=== PATIENT | male | born 1950 | race Caucasian/White ===

== ENCOUNTER 2017-07-28 14:22 | Outpatient (CLI) | payer MEDICARE ==
[~2017-07-28 14:22] MED LIST: Gadobenate Dimeglumine 529 MG/1 ML (20ML VIAL) ONE
== END 2017-07-28 14:23 | disposition home or self-care (01) ==
LOC: BICMRI 14:22
PROVIDERS: ATTEND Psychiatry & Neurology Neurology
DX: R41.89 Other symptoms and signs involving cognitive functions and awareness (principal); Z85.841 Personal history of malignant neoplasm of brain
CPT/HCPCS: 70553; A9579

== ENCOUNTER 2018-07-20 07:57 | Outpatient (CLI) | payer MEDICARE ==
[2018-07-20] MEDS ORDERED: ISOVUE-370 76%-LOCM 1 ML ONE (09:36)
--- NOTE | 2018-07-20 10:00 | CT ---
CT ABDOMEN AND PELVIS WITH IV CONTRAST: DATE: 07/20/2018. HISTORY: Epigastric pain and weight loss. Early satiety. History of brain cancer 19 years ago post chemother apy and radiation. Post EGD 2 days ago with reported diagnosis of esophageal cancer. COMPARISON: Non available. FINDINGS: There is minimal dependent atelectasis at the right lung base. Lung bases are otherwise clear. No p ulmonary nodule, mass, or pleural effusion is seen at either lung base. There are subcentimeter too small to characterize hypodense lesions seen within the liver. There is an exophytic 2.4 cm fluid attenuation density at the superior pole right kidney compatible w ith a cyst. There is a question of prominence of each renal collecting system, but this may be relat ed to parapelvic renal cyst. This cannot be further evaluated without delayed images post IV contras t. A subcentimeter too small to characterize hypodense lesion is seen at the inferior pole right kid blas. No enhancing renal mass is seen and no renal or ureteral calculi are appreciated. The spleen, pancreas, bilateral adrenal glands, and urinary bladder demonstrate a normal CT appearanc e. There is suggested thickening in the region of the GE junction with soft tissue prominence in this re gion. This could potentially be related to patient's reported history of esophageal cancer. It is d ifficult to further evaluate on this exam. Loops of small bowel are normal in caliber. A few colonic diverticula are seen. Vascular calcifications and mildly irregular atherosclerotic plaque is seen in the abdominal aorta an d to a lesser extent involving the iliac arteries. Surgical clips are seen in the scrotum bilaterally. No free fluid, fluid collection, or lymphadenopathy is seen in the abdomen or pelvis. Mild degenerative changes are seen in the spine. No lytic or sclerotic osseous lesions are identifie d. IMPRESSION: 1. Suggested soft tissue thickening in the region of the gastroesophageal junction. The patient has a reported history of esophageal cancer noted on recent esophagogastroduodenoscopy which may potenti ally account for this finding. 2. Subcentimeter too small to characterize hypodense lesions scattered in each lobe of the liver whi ch may represent tiny cysts. However, given multiplicity, tiny metastatic lesions could not be entir berta excluded. 3. No evidence of lymphadenopathy. 4. Right renal cysts with low-density areas in the region of the renal collecting systems bilaterall y probably related to parapelvic renal cysts as opposed to dilatation of the calyces. 5. No evidence of lymphadenopathy. 6. Mild colonic diverticulosis. POS: [facility]
== END 2018-07-20 07:58 | disposition home or self-care (01) ==
LOC: BICCT 07:57
PROVIDERS: ATTEND Internal Medicine Gastroenterology
DX: Z12.11 Encounter for screening for malignant neoplasm of colon (principal); R63.4 Abnormal weight loss; G93.9 Disorder of brain, unspecified; R10.13 Epigastric pain; K57.30 Diverticulosis of large intestine without perforation or abscess without bleeding; N28.1 Cyst of kidney, acquired; Z85.841 Personal history of malignant neoplasm of brain; Z85.01 Personal history of malignant neoplasm of esophagus
CPT/HCPCS: 36415; 74177; 80053; 82378; 82607; 82728; 84443; Q9966

== ENCOUNTER 2018-07-25 12:58 | Outpatient (CLI) | payer MEDICARE ==
--- NOTE | 2018-07-25 15:14 | PET ---
PET SCAN: HISTORY: Adenocarcinoma of the gastroesophageal junction. COMPARISON: CT abdomen/pelvis 07/20/2018. TECHNIQUE: A PET CT Was performed from the skull base through the mid thigh after administration of 10.5 mCi of F18-FDG. FINDINGS: There is thickening of the wall of the distal esophagus at the gastroesophageal junction. This demon strates hypermetabolic activity with a max SUV value of 13.6. No adjacent large or hypermetabolic ly mph nodes are seen in the lower mediastinum or adjacent to the stomach. No suspicious or hypermetabolic pulmonary nodules are identified. No suspicious hypermetabolic activ ity is seen in the neck or chest. No other suspicious areas of hypermetabolic activity are seen in t he abdomen or pelvis. CT images used for attenuation correction show stable small liver lesions which are too small to defi nitely characterize. Suspected metabolic activity is seen within the liver without obvious increased hypermetabolic activity in the lesion where the small subcentimeter lesions are present. There is a lso a cyst in the right kidney which does not demonstrate hypermetabolic activity. Scattered diverti cula are seen in the colon. No suspicious areas of hypermetabolic activity are seen within the skeleton. IMPRESSION: Hypermetabolic activity at the gastroesophageal junction is consistent with the patient's diagnosis o f adenocarcinoma at the gastroesophageal junction. POS: [facility]
== END 2018-07-25 12:59 | disposition home or self-care (01) ==
LOC: PET 12:58
PROVIDERS: ATTEND Internal Medicine Hematology & Oncology
DX: C16.0 Malignant neoplasm of cardia (principal)
CPT/HCPCS: 78815; A9552

== ENCOUNTER 2018-08-18 11:02 | Day surgery (SDC) | payer MEDICARE ==
[2018-08-17 17:15] VITALS: BMI 28.8
[2018-08-18 11:52] LABS: #Eosinphils 0.1 thou/uL (0.0-0.7); #Lymphocytes 0.8 thou/uL (1.20-3.40); #Monocytes 0.4 thou/uL (0.11-0.59); #Neutrophils 6.5 thou/uL (1.40-6.50); %Basophils 0.3 % (0.0-1.0); %Eosinophils 1.4 % (0.0-10.0); %Lymphocytes 10.6 % (21.0-51.0); %Monocytes 5.3 % (0.0-10.0); %Neutrophils 82.5 % (42.0-75.0); Hemoglobin 13.6 g/dL (14.0-18.0); Mean Corpuscular HGB CONC 33.1 g/dL (32.0-36.0); Mean Corpuscular Hemoglobin 32.5 pg (27.0-31.0); Mean Platelet Volume 7.7 fL (7.4-10.4); Platelet Count 239 thou/uL (130-400); RBC Distribution Width 12.6 % (11.5-14.5); White Blood Cell (WBC) Count 7.8 thou/uL (4.8-10.8)
[2018-08-18] MEDS ORDERED: Ketorolac Tromethamine 30 MG/ML VIAL ONE (11:52)
[2018-08-18 12:16] LABS: Anion Gap 11 mmol/L (10-20); BUN (Urea Nitrogen) 18 mg/dL (8.4-25.7); Calc. Creatinine Clearance 107 mL/min (70-130); Calcium 9.2 mg/dL (7.8-10.44); Carbon Dioxide 28 mmol/L (23-31); Chloride 104 mmol/L (98-107); Estimated GFR-MDRD Greater than 90; Glucose 111 mg/dL (80-115); Potassium 4.8 mmol/L (3.5-5.1); Sodium 138 mmol/L (136-145)
[2018-08-18] MEDS ORDERED: Lidocaine 1% (PF) 30 ML VIAL ONE (12:58)
[2018-08-18] MEDS ORDERED: Bupivacaine/Epinephrine 0.25% 30 ML VIAL ONE (12:58)
[2018-08-18] MEDS ORDERED: Fentanyl 100 MCG/2 ML VIAL ONE (13:13)
[2018-08-18] MEDS ORDERED: PROPOFOL 40 ML ONE (13:13)
--- NOTE | 2018-08-18 13:32 | RAD ---
PA AND LATERAL CHEST: HISTORY: Preop. FINDINGS: Heart size and mediastinum are within normal limits. There are some atherosclerotic changes of the a jeanette. The lungs are clear of any infiltrates. Some loss of vertebral body height of some of the mid thoracic vertebral bodies, probably on the basis of osteoporosis. IMPRESSION: No active intrathoracic disease. POS: [facility]
[2018-08-18] MEDS ORDERED: Lidocaine 1% PF 5 ML VIAL ONE (13:53)
[2018-08-18] MEDS ORDERED: Ondansetron PF 4 MG/2 ML Vial ONE (13:53)
[2018-08-18] MEDS ORDERED: ePHEDrine 50 MG/ML VIAL ONE (13:53)
[2018-08-18] MEDS ORDERED: PHENYLEPHRINE-NS 100 MCG/ML 10 ML SYRINGE ONE (13:53)
--- NOTE | 2018-08-18 16:06 | RAD ---
CHEST ONE VIEW: HISTORY: Mediport placement. FINDINGS: The cardiac silhouette and pulmonary vasculature are unremarkable. The mediastinum is midline. The tip of a right subclavian Port-A-Cath projects over the lower superior vena cava. No evidence of pne umothorax. The mediastinum is midline. IMPRESSION: Right subclavian Port-A-Cath is in good radiographic position. POS: [facility]
--- NOTE | 2018-08-19 23:00 | OP ---
DATE OF PROCEDURE: 08/18/2018 PREOPERATIVE DIAGNOSIS: Esophageal cancer. POSTOPERATIVE DIAGNOSIS: Esophageal cancer. OPERATION PERFORMED: Placement of low-profile power compatible right subclavian MediPort. ANESTHESIA: Total intravenous anesthesia with local using 0.25% Marcaine with epinephrine. INDICATIONS: The patient is a 68-year-old white male. He has been diagnosed with a distal esophageal cancer. Neoadjuvant chemotherapy has been recommended and MediPort placement is requested for this purpose. DESCRIPTION OF OPERATION: Informed consent was obtained. The patient was taken to the operating room where total intravenous anesthesia was obtained with the patient in supine position. Periclavicular area was prepped with ChloraPrep and draped in sterile fashion. Local anesthetic was infiltrated and a large-gauge needle was passed under the clavicle in the subclavian vein. Guidewire was passed through the needle and fluoroscopically confirmed to enter the superior vena cava. Additional local anesthetic was infiltrated and transverse incision was created based on needle insertion site. A subcutaneous pocket was dissected inferiorly. Introducer dilator was passed over the guidewire under fluoroscopic guidance. The guidewire and dilator were removed, and the catheter was passed through the introducer. The tip of the catheter was positioned at the atriocaval junction and the catheter was trimmed to the appropriate length and secured to the locking hub of the MediPort. The port was then placed in the subcutaneous pocket where it was secured to the pectoral fascia with 2 interrupted sutures of 3-0 Prolene. The incision was then closed in layers with 3-0 and 4-0 Monocryl. Additional local anesthetic was infiltrated. The port was cannulated with a Mares needle and it aspirated blood freely and was flushed with heparinized saline. Dermabond was placed externally on the skin incision. There were no complications. Blood loss was negligible. The patient tolerated the procedure well and was taken to recovery room in stable condition. FINDINGS: A low-profile port was selected and placed uneventfully into the right subclavian vein. He had typical external and internal anatomy. Fluoroscopy was used throughout. There was essentially no blood loss and no complications. The patient tolerated the procedure well. Job ID: [id number]
== END 2018-08-18 15:28 | disposition home or self-care (01) ==
LOC: SDC 11:02
PROVIDERS: ATTEND Specialist
PROC: 0JH63WZ Insertion of Totally Implantable Vascular Access Device into Chest Subcutaneous Tissue and Fascia, Percutaneous Approach (ICD-10-PCS; principal; 2018-08-18)
DX: C15.5 Malignant neoplasm of lower third of esophagus (principal); E03.9 Hypothyroidism, unspecified; Z86.011 Personal history of benign neoplasm of the brain; Z87.891 Personal history of nicotine dependence; Z79.899 Other long term (current) drug therapy
CPT/HCPCS: 36561; 71045; 71046; 80048; 85025; 93005; C1788; 36415; 93010; J0131; J1642; J1885; J2001; J2704; J3010

== ENCOUNTER 2018-10-11 15:18 | Outpatient (CLI) | payer MEDICARE ==
--- NOTE | 2018-10-11 16:46 | MRI ---
Exam: Brain MRI with and without contrast HISTORY: Gastric neoplasm. Minor seizures. Or intracranial metastases. COMPARISON: 07/28/2017, 07/29/2016 FINDINGS: Stable susceptibility artifact due to previous right frontal-temporal craniotomy. No evidence of acut e intraparenchymal hemorrhage Stable surgical cavity involving the right frontal and temporal lobes. Stable T2 and FLAIR white kristen er hyperintensity associated with gliosis. Stable septated fluid collection in the right middle cranial fossa. Additional T2 and FLAIR white matter hyperintensities due to chronic small vessel ischemic change. Central arterial flow is maintained. Absent restricted diffusion. Adequate aeration of the sinuses and mastoid air cells No pathologic enhancement of the brain parenchyma. IMPRESSION: 1. Stable postsurgical/posttreatment changes. 2. No evidence of a new enhancing/intracranial metastatic lesion.
== END 2018-10-11 15:19 | disposition home or self-care (01) ==
LOC: BICMRI 15:18
PROVIDERS: ATTEND Internal Medicine Hematology & Oncology
DX: C16.0 Malignant neoplasm of cardia (principal); R56.9 Unspecified convulsions; Z98.890 Other specified postprocedural states
CPT/HCPCS: 70553

== ENCOUNTER 2018-10-26 07:58 | Outpatient (CLI) | payer MEDICARE ==
--- NOTE | 2018-10-26 11:04 | PET ---
EXAM: PET/CT HISTORY: Malignant neoplasm of the gastroesophageal junction TECHNIQUE: PET scanning with CT attenuation correction was performed from the base of the brain to the proximal thighs following the intravenous administration of 12.3 millicuries [id number]. COMPARISON: Prior PET/CT dated July 25, 2018 FINDINGS: Biodistribution:The biodistribution for the exam appears acceptable. Head and neck: There is appropriate background activity within the brain. There is stable loss of act ivity seen involving portions of the right frontal lobe and right temporal lobe consistent with patient's prior history of surgery within this region. No hypermetabolic lymphadenopathy or mass is i dentified. Thorax: No hypermetabolic pulmonary nodule or pleural effusion is evident. No hypermetabolic lymphade nopathy is noted. Abdomen and pelvis: There is expected background activity within the GI and systems.The focal hype rmetabolic mass involving the cardia of the proximal stomach has significantly reduced in conspicuity and hypermetabolic uptake. The peak SUV activity associated with this mass lesion is now 3.17 with a mean activity of 2.67. Previously the mass had a peak activity of 12.92 and a mean activity at 10.66. No additional hypermetabolic mass or lymphadenopathy is evident. No hypermetabolic ascites is present. Osseous structures and skin: No hypermetabolic skin or osseous lesion is identified. IMPRESSION: 1. Findings consistent with response to therapy. There is decreased hypermetabolic activity and soft tissue mass conspicuity involving the known gastroesophageal junction malignancy. 2. No evidence of distant metastatic disease.
== END 2018-10-26 07:59 | disposition home or self-care (01) ==
LOC: PET 07:58
PROVIDERS: ATTEND Internal Medicine Hematology & Oncology
DX: C16.0 Malignant neoplasm of cardia (principal); R94.8 Abnormal results of function studies of other organs and systems
CPT/HCPCS: 78815; A9552

== ENCOUNTER 2018-11-15 14:03 | Emergency (ER) | payer MEDICARE ==
[2018-11-15 14:56] LABS: #Basophils 0.1 thou/uL (0.0-0.2); #Eosinphils 0.1 thou/uL (0.0-0.7); #Lymphocytes 0.7 thou/uL (1.20-3.40); #Monocytes 0.5 thou/uL (0.11-0.59); #Neutrophils 2.4 thou/uL (1.40-6.50); %Eosinophils 2.9 % (0.0-10.0); %Lymphocytes 18.1 % (21.0-51.0); %Monocytes 13.2 % (0.0-10.0); %Neutrophils 63.7 % (42.0-75.0); Anisocytosis SLIGHT = 6-15 cells (100X) (0-5/hpf); Hemoglobin 11.6 g/dL (14.0-18.0); MDiff Complete? YES; Macrocytosis SLIGHT = 6-15 cells (100X) (0-5/hpf); Mean Corpuscular Hemoglobin 36.2 pg (27.0-31.0); Mean Platelet Volume 6.4 fL (7.4-10.4); Microcytosis SLIGHT = 6-15 cells (100X) (0-5/hpf); Platelet Count 172 thou/uL (130-400); Platelet Morphology Comment Appears Adequate; Polychromasia SLIGHT = 2-3 cells (100X) (0-2/hpf); White Blood Cell (WBC) Count 3.8 thou/uL (4.8-10.8)
[2018-11-15 15:01] LABS: ALT (SGPT) 19 U/L (8-55); AST (SGOT) 20 U/L (5-34); Albumin 3.8 g/dL (3.4-4.8); Alkaline Phosphatase 83 U/L (40-150); Anion Gap 11 mmol/L (10-20); BUN (Urea Nitrogen) 14 mg/dL (8.4-25.7); Bilirubin, Total 0.3 mg/dL (0.2-1.2); Calc. Creatinine Clearance 0 mL/min (70-130); Carbon Dioxide 26 mmol/L (23-31); Chloride 105 mmol/L (98-107); Estimated GFR-MDRD 88; Globulin 2.5 g/dL (2.4-3.5); Glucose 105 mg/dL (80-115); Potassium 3.4 mmol/L (3.5-5.1); Protein, Total 6.3 g/dL (5.8-8.1); Sodium 139 mmol/L (136-145)
--- NOTE | 2018-11-15 15:17 | CT ---
Exam: Head CT without contrast HISTORY: Fall. Pain. Confusion. COMPARISON: None Correlation: MRI brain 07/28/2017 FINDINGS: Hemorrhage: No intraparenchymal hemorrhage or extra-axial hematoma. Brain parenchyma: Stable malacic and gliotic changes involving the right cerebrum. Left cerebrum demo nstrates preservation of cortical jiémnez-white matter differentiation. Ventricular system: Ventricles and sulci are patent and symmetric. Calvarium: Stable postsurgical changes in the right calvarium. Sinuses and mastoid air cells: Adequate aeration. IMPRESSION: 1. No acute intracranial process. 2. Stable malacic and gliotic changes in the right cerebrum.
--- NOTE | 2018-11-15 15:27 | CT ---
CT facial bones, noncontrast CLINICAL HISTORY: Pain, injury COMPARISON: None FINDINGS: Facial bones: No fracture Facial soft tissues: No significant abnormality Orbital contents: Atraumatic Paranasal sinuses: Mild mucosal prominence. Small retention cyst seen within right mid ethmoid air ce ll. Incidental note of prior craniotomy of right calvarium. There is soft tissue effacement of the right aspect of the posterior oral cavity/oropharynx which may relate to patient's tongue position, although recommend correlation with direct visualization to exclude posterior right oral cavity mass. IMPRESSION: No acute facial fracture. Additional findings as discussed above.
[2018-11-15] MEDS ORDERED: Adacel (T-DAP) 0.5 ML SYRINGE ONE (15:47)
== END 2018-11-15 17:14 | disposition home or self-care (01) ==
LOC: SCSER 14:03
DX: S01.112A Laceration without foreign body of left eyelid and periocular area, initial encounter (principal); Z87.891 Personal history of nicotine dependence; Z79.899 Other long term (current) drug therapy; Z23 Encounter for immunization; W19.XXXA Unspecified fall, initial encounter
CPT/HCPCS: 12011; 36415; 70450; 70486; 80053; 85025; 90471; 90715

== ENCOUNTER 2019-02-06 11:37 | Outpatient (CLI) | payer MEDICARE ==
--- NOTE | 2019-02-06 13:40 | PET ---
EXAM: PET/CT HISTORY: Adenocarcinoma of the gastroesophageal junction TECHNIQUE: PET scanning with CT attenuation correction was performed from the base of the brain to the proximal thighs following the intravenous administration of 12.3 millicuries [id number]. COMPARISON: PET/CT dated October 26, 2018 FINDINGS: Biodistribution:The biodistribution for the exam appears acceptable. Head and neck: There is appropriate background activity within the brain. No hypermetabolic lymphaden opathy or masses identified. Surgical defects within the right temporal and right frontal lobe are stable. Thorax: No hypermetabolic mass, pleural effusion or lymphadenopathy is present. Previously seen regio n of mild hypermetabolic activity at the gastroesophageal junction is no longer demonstrated there is new airspace consolidation within the posterior medial aspect of the left lower lobe. There are sm all bilateral pleural effusions. Abdomen and pelvis: There is expected background activity within the GI and systems.There is expec chayo background activity within the GI and system. There are scattered vascular calcifications. Osseous structures and skin: No hypermetabolic skin or osseous lesion is identified. IMPRESSION: 1. Findings consistent with response to therapy. 2. The gastroesophageal junctional lesion demonstrates no appreciable hypermetabolic uptake. 3. New airspace consolidation within the left lower lobe is suspicious for pneumonia. Recommend corre lation with the clinical exam CT follow-up to resolution. 4. Small bilateral pleural effusions
== END 2019-02-06 11:38 | disposition home or self-care (01) ==
LOC: PET 11:37
PROVIDERS: ATTEND Internal Medicine Hematology & Oncology
DX: C18.9 Malignant neoplasm of colon, unspecified (principal); J90 Pleural effusion, not elsewhere classified; K22.8 Other specified diseases of esophagus
CPT/HCPCS: 78815; A9552

== ENCOUNTER 2019-06-01 09:46 | Outpatient (CLI) | payer MEDICARE ==
--- NOTE | 2019-06-01 14:34 | PET ---
EXAM: PET/CT HISTORY: Adenocarcinoma of the gastroesophageal junction. Last chemotherapy on 10/05/2018. Exam is requested fo r restaging and planning for subsequent treatment TECHNIQUE: PET scanning with CT attenuation correction was performed from the base of the brain to the proximal thighs following the intravenous administration of 12 millicuries [id number]. COMPARISON: PET/CT of 02/06/2019 FINDINGS: No abnormal FDG localization is seen in the region of the GE junction. No keith hypermetabolism is noted in the neck, chest, axillae, abdomen, pelvis or inguinal regions. No hypermetabolic liver, adrenal or skeletal lesions are seen. There is physiologic activity in the GI and tracts and the visualized portions of the brain. The CT scan used for attenuation correction demonstrates no evidence of pleural effusions or ascites. The previously noted small pleural effusions and consolidation in the left lower lobe have resolved in the interim. IMPRESSION: No evidence of metastatic disease.
== END 2019-06-01 09:47 | disposition home or self-care (01) ==
LOC: PET 09:46
PROVIDERS: ATTEND Internal Medicine Hematology & Oncology
DX: C16.0 Malignant neoplasm of cardia (principal); J90 Pleural effusion, not elsewhere classified
CPT/HCPCS: 78815; A9552

== ENCOUNTER 2020-05-19 09:23 | Outpatient (CLI) | payer MEDICARE ==
[2020-05-19] MEDS ORDERED: Iopamidol-370 76% 500 ML 1 ML ONE (10:07)
--- NOTE | 2020-05-19 11:48 | CT ---
CT CHEST AND ABDOMEN AND PELVIS WITH IV CONTRAST: Date: 05/19/2020 PROVIDED CLINICAL HISTORY: Adenocarcinoma of the GE junction. FINDINGS: Comparison made with examination dated 07/20/2018. Correlation is made with PET CT scan of 11/15/2019 . The heart, pericardium, and great vessels demonstrate an unremarkable CT appearance. There is no evid ence for thoracic lymph node enlargement. The lungs are free of significant opacity. There is no pleu ral fluid or pneumothorax apparent. The airway appears patent and of normal caliber. There are stable subcentimeter hepatic hypodensities compatible with cysts. Simple appearing exophyti c right renal cyst redemonstrated, stable. The solid abdominal organs demonstrate an otherwise unrema rkable CT appearance. There is no bowel dilatation, inflammatory fat stranding, free fluid, or lymph node enlargement apparent. Scattered atherosclerotic vascular calcifications are seen. The osseous structures demonstrate no concerning lytic or blastic lesions. IMPRESSION: No evidence for metastatic disease. POS: [facility]
== END 2020-05-19 09:24 | disposition home or self-care (01) ==
LOC: BICCT 09:23
PROVIDERS: ATTEND Internal Medicine Hematology & Oncology
DX: C16.0 Malignant neoplasm of cardia (principal); J90 Pleural effusion, not elsewhere classified; K76.89 Other specified diseases of liver
CPT/HCPCS: 71260; 74177